=== PATIENT | female | born 1975 | race Caucasian/White ===

== ENCOUNTER 2024-05-23 16:34 | Emergency (ER) | payer OTHER, SELFPAY ==
[2024-05-23 16:46] VITALS: BP 118/69; PULSE 113; TEMP 37.3; O2SAT 97; BMI 35.2
--- NOTE | 2024-05-23 17:01 | XR_ITS ---
[address] [address] Patient Name: JOSE DASILVA MRN: [id number] date: 1975 Sex: F Assigned Patient Location: ER Current Patient Location: ED.MAIN Accession/Order Number: [id number] Exam Date: 05/23/2024 17:23 Report Date: 05/23/2024 17:46 At the request of: IVY MORALES Procedure: XR chest 2V Exam: Radiographs: XR chest 2V Reason for exam: Cough Comparison: None XR/XR chest 2V IMPRESSION: Masslike right perihilar opacity. Malignancy cannot be excluded. Recommend further evaluation with contrast-enhanced chest CT. Pulmonary venous hypertension. Remainder the chest is unremarkable. Electronically authenticated by: KIRILL RODRIGUEZ Date: 05/23/2024 17:46
--- NOTE | 2024-05-23 17:02 | ED_ITS ---
HPI HPI - General Adult General Chief complaint: Upper Respiratory Infection Stated complaint: cough, rib pain Time Seen by Provider: 05/23/24 16:48 Source: patient Mode of arrival: walk-in Limitations: no limitations History of Present Illness HPI narrative: Patient presents with a 5-day history of productive cough, body aches and chills. She reports sharp pain underneath the left breast worse with local pressure and coughing and thinks she may have pulled a muscle. Related Data Previous Rx's ?Medication ?Instructions ?Recorded dextromethorphan-guaifenesin ER 60 1 tab PO BID PRN cough #20 tabs 05/23/24 mg-1,200 mg tab,extend release,12hr (Mucinex DM) ibuprofen 600 mg tablet 600 mg PO TID PRN fever or pain 05/23/24 #15 tabs levofloxacin 500 mg tablet 500 mg PO DAILY 7 days #7 tabs 05/23/24 Allergies Allergy/AdvReac Type Severity Reaction Status Date / Time cefaclor (From [facility]) Allergy Severe Hives Verified 05/23/24 16:50 Opioid HPI Opioid Management Most Recent Opioid Data: Last Pain Scale 10 05/23/24 17:50 05/23/24 Last JUN Pain Assessment 05/23/24 17:50 Review of Systems ROS Status of ROS 10 or more systems reviewed and unremark able except as noted in history and below PFSH PFSH Social History Little interest or pleasure in doing things: not at all Feeling down, depressed, or hopeless: not at all Exam Narrative Exam Narrative: Patient is mildly tachycardic and her temp is 99.2 degrees. The rest of her vitals are stable. She is not in acute respiratory distress. HEENT exam is normal to inspection. Neck is supple. Lung sounds are clear to auscultation bilaterally. Her pain is easily reproducible by local palpation over the left lower rib cage anteriorly. There is no underlying crepitus and no overlying skin rashes noted. Heart has regular rate and rhythm. Abdomen is soft nonte nder. Constitutional Vital Signs, click to edit/add: Last Vital Signs Temp 99.2 F 05/23/24 16:46 Pulse 113 H 05/23/24 16:46 Resp 20 05/23/24 16:46 BP 118/69 05/23/24 16:46 Pulse Ox 97 05/23/24 16:46 O2 Del Method Room Air 05/23/24 16:46 Course Vital Signs Vital signs: Vital Signs Temperature 99.2 F 05/23/24 16:46 Pulse Rate 113 H 05/23/24 16:46 Respiratory Rate 20 05/23/24 16:46 Blood Pressure 118/69 05/23/24 16:46 Pulse Oximetry 97 05/23/24 16:46 Oxygen Delivery Method Room Air 05/23/24 16:46 Temperature 99.2 F 05/23/24 16:46 Pulse Rate 113 H 05/23/24 16:46 Respiratory Rate 20 05/23/24 16:46 Blood Pressure 118/69 05/23/24 16:46 Pulse Oximetry 97 05/23/24 16:46 Oxygen Delivery Method Room Air 05/23/24 16:46 Medical Decision Making MDM Narrative Medical decision making narrative: Patient presents with cough and congestion and left-sided chest wall pain which I feel is due to the strain of coughing. Chest x-ray showed a rounded density in the right midlung zone. There was concern for mass and CT scan was obtained with contrast which shows a right lower lobe infiltrate but no mass. She is started on IV Levaquin in the ED and will be discharged with a prescription for Levaquin 500 mg daily for another 7 days. Ibuprofen and Mucinex DM are also being prescribed. Patient has to follow-up with her PCP and return to the ED anytime for worsening symptoms. Lab Data Labs: Lab Results 05/23/24 05/23/24 Range/Units 16:50 17:57 WBC 15.9 H (4.0-11.0) 10^3/uL RBC 5.12 (4.20-5.40) 10^6/uL Hgb 15.2 (12.0-16.0) g/dL Hct 45.4 (36.0-48.0) % MCV 88.7 (81.0-99.0) fL MCH 29.7 (26.7-34.0) pg MCHC 33.5 (29.9-35.2) g/dL RDW 14.1 (11.0-15.0) % Plt Count 192 (150-450) 10^3/uL MPV 9.8 (9.5-13.5) fL Sodium 136 (136-145) mmol/L Potassium 3.7 (3.5-5.1) mmol/L Chloride 99 (98-107) mmol/L Carbon Dioxide 24.7 (21.0-32.0) mmol/L Anion Gap 16.0 BUN 12.0 (7.0-18.0) mg/dL Creatinine 0.97 (0.55-1.02) mg/dL Est GFR ( Amer) >60 (>=60 mL/min/1.73m^2) Est GFR (Non-Af Amer) >60 (>=60 mL/min/1.73m^2) BUN/Creatinine Ratio 12.4 Glucose 104 (74-106) mg/dL Calcium 8.6 (8.5-10.1) mg/dL Total Bilirubin 1.3 H (0.2-1.0) mg/dL AST 43 H (15-37) U/L ALT 56 (14-59) U/L Alkaline Phosphatase 139 H (46-116) U/L Total Protein 7.2 (6.4-8.2) g/dL Albumin 3.6 (3.4-5.0) g/dL Globulin 3.6 g/dL Albumin/Globulin Ratio 1.0 Influenza Type A Ag Negative Influenza Type B Ag Negative SARS-CoV-2 Ag (CV2AG) Negative (NEGATIVE) Discharge Plan Discharge Chief Complaint: Upper Respiratory Infection Clinical Impression: Chest wall pain Pneumonia Qualifiers: Pneumonia type: due to unspecified organism Laterality: right Lung location: lower lobe of lung Qualified Code(s): J18.9 - Pneumonia, unspecified organism Patient Disposition: Home, Self-Care Time of Disposition Decision: 18:30 Condition: Fair Mode of Transportation: Private Vehicle Prescriptions / Home Meds: New levofloxacin 500 mg tablet 500 mg PO DAILY 7 Days Qty: 7 0RF dextromethorphan-guaifenesin [Mucinex DM] 60-1,200 mg tablet extended release 12 hr 1 tab PO BID PRN (Reason: cough) Qty: 20 0RF ibuprofen 600 mg tablet 600 mg PO TID PRN (Reason: fever or pain) Qty: 15 0RF Print Language: Prydeinig Instructions: Community Acquired Pneumonia (ED), Chest Wall Pain (ED) Additional Instructions: Follow-up with your physician in the next 2 or 3 days. Return for worsening symptoms. Referrals: Physician,Non-Staff, MD [Physician] - 1 week
[2024-05-23 17:27] LABS: Influenza Virus A Antigen Negative; Influenza Virus B Antigen Negative; Internal Control Within Normal Limits; SARS-CoV-2 Ag NEGATIVE (NEGATIVE)
[2024-05-23] MEDS: HYDROCODONE/ACET 5-325 MG TABLET 1 TAB PO (17:50)
[2024-05-23] MEDS: IBUPROFEN 600 MG TABLET PO (17:50)
--- NOTE | 2024-05-23 17:51 | CT_ITS ---
The [address] [address] Patient Name: JOSE DASILVA MRN: [id number] date: 1975 Sex: F Assigned Patient Location: ER Current Patient Location: ER Accession/Order Number: [id number] Exam Date: 05/23/2024 18:04 Report Date: 05/23/2024 18:23 At the request of: IVY MORALES Procedure: CT chest w con EXAM: CT scan of the chest using 100 mL of IV iodinated contrast. Dose reduction technique used: Automated exposure control and/or adjustment of the mA and/or kV according to patient size and/or use of iterative reconstruction technique. REASON FOR EXAM: mass like density right lung COMPARISON: Plain films from today FINDINGS: Small to moderate amount of consolidation in the right lower lobe. No pneumothorax. No pleural effusion. No acute fractures. No central pulmonary emboli. No aortic dissection. No concerning pulmonary nodules. Scattered mucus plugging in the left lower lung. Enlarged mediastinal and right hilar lymph nodes. The right hilar lymph node measures 2.7 x 1.5 cm. Small esophageal hiatal hernia. Paraseptal emphysema in the upper lungs bilaterally. Remainder unremarkable. CT/CT chest w con IMPRESSION: 1. Right lower lobe consolidation likely represents pneumonia. 2. Mediastinal and right hilar lymphadenopathy is likely reactive. Recommend follow-up imaging in 3 months to ensure resolution. Electronically authenticated by: KIRILL RODRIGUEZ Date: 05/23/2024 18:23
[2024-05-23 18:02] LABS: Hematocrit 45.4 % (36.0-48.0); Hemoglobin 15.2 g/dL (12.0-16.0); Mean Corpuscular HGB Conc 33.5 g/dL (29.9-35.2); Mean Corpuscular Hemoglobin 29.7 pg (26.7-34.0); Mean Corpuscular Volume 88.7 fL (81.0-99.0); Mean Platelet Volume 9.8 fL (9.5-13.5); Platelet Count 192 10^3/uL (150-450); Red Blood Count 5.12 10^6/uL (4.20-5.40); Red Cell Distribution Width 14.1 % (11.0-15.0); White Blood Count 15.9 10^3/uL (4.0-11.0)
[2024-05-23] MEDS: 0.9 % SODIUM CHLORIDE 1,000 ML 1000 ML IV (18:18)
[2024-05-23] MEDS: LEVOFLOXACIN IN DEXTROSE 5 % 750 MG/150 ML PREMIX 100 MG IV (18:19)
[2024-05-23 18:21] LABS: Alanine Aminotransferase 56 U/L (14-59); Albumin Level 3.6 g/dL (3.4-5.0); Alkaline Phosphatase 139 U/L (46-116); Aspartate Amino Transferase 43 U/L (15-37); BUN Creatinine Ratio 12.4; Bilirubin Total 1.3 mg/dL (0.2-1.0); Calcium 8.6 mg/dL (8.5-10.1); Carbon Dioxide 24.7 mmol/L (21.0-32.0); Chloride 99 mmol/L (98-107); Estimated GFR (African America >60 (>=60 mL/min/1.73m^2); Estimated GFR (Non-African Ame >60 (>=60 mL/min/1.73m^2); Globulin 3.6 g/dL; Glucose 104 mg/dL (74-106); Potassium 3.7 mmol/L (3.5-5.1); Sodium 136 mmol/L (136-145); Total Protein 7.2 g/dL (6.4-8.2)
[2024-05-23 19:01] LABS: Band Neutrophils Absolute 0.3 10^3/uL (0.0-0.3); Lymphocytes Absolute Manual 0.31 10^3/uL (1.20-3.80); Segmented Neut Absolute Manual 15.26 10^3/uL (1.4-6.5)
[2024-05-23] MEDS: ONDANSETRON PF 4 MG/2 ML VIAL IV (19:33)
[2024-05-23 19:39] VITALS: BP 115/64; PULSE 106; TEMP 37.2; O2SAT 95
== END 2024-05-23 20:05 | disposition home or self-care (01) ==
PROVIDERS: Emergency Medicine; Emergency Provider Emergency Medicine; PCP Family Medicine
DX: J18.9 Pneumonia, unspecified organism (principal); R07.89 Other chest pain
CPT/HCPCS: 36415; 71046; 71260; 80053; 85007; 85027; 87804; 87811; 96365; 96366; 96375; 99285; J2405; Q9967